=== PATIENT | male | born 1960 | race African-American/Black ===

== ENCOUNTER 2017-05-06 14:59 | Emergency (ER) | payer MEDICAID, OTHER ==
[~2017-05-06] VITALS: Ht 185.4 cm; Wt 92.0 kg
[~2017-05-06 14:59] MED LIST: HTN MEDICATION
[2017-05-06] MEDS ORDERED: KETOROLAC 60MG/2ML VIAL IM ONE (21:30)
[2017-05-06 22:08] VITALS: BP 150/76
== END 2017-05-06 23:25 | disposition home or self-care (01) ==
LOC: ER 14:59
DX: M54.5 Low back pain (principal); M25.562 Pain in left knee; M25.561 Pain in right knee; I10 Essential (primary) hypertension; M17.0 Bilateral primary osteoarthritis of knee; F10.10 Alcohol abuse, uncomplicated; F12.10 Cannabis abuse, uncomplicated; F17.210 Nicotine dependence, cigarettes, uncomplicated
CPT/HCPCS: 73562; 96372; 99284; J1885

== ENCOUNTER 2018-10-06 10:03 | Emergency (ER) | payer MEDICAID, OTHER ==
[~2018-10-06] VITALS: Ht 185.4 cm; Wt 86.0 kg
[2018-10-06] MEDS ORDERED: HYDROCODONE/ACETAMINOPHEN 5/325MG TABLET PO ONE (11:15)
[2018-10-06 11:50] VITALS: BP 219/101
== END 2018-10-06 12:35 | disposition home or self-care (01) ==
LOC: ER 10:19
DX: G89.29 Other chronic pain (principal); M54.5 Low back pain; Z76.0 Encounter for issue of repeat prescription; I10 Essential (primary) hypertension; M19.90 Unspecified osteoarthritis, unspecified site; F17.200 Nicotine dependence, unspecified, uncomplicated; F12.10 Cannabis abuse, uncomplicated
CPT/HCPCS: 99283

== ENCOUNTER 2018-10-28 14:53 | Emergency (ER) | payer MEDICAID ==
[~2018-10-28] VITALS: Ht 182.9 cm; Wt 85.6 kg
[2018-10-29 03:00] LABS: CHLORIDE 105 mEq/L (98-107)
[2018-10-29 03:05] LABS: BASOPHILS % 0.7 % (0.0-2.0); EOSINOPHILS % 2.3 % (0.0-5.0); HEMATOCRIT. 42.3 % (42.0-52.0); HEMOGLOBIN. 14.1 g/dL (14.0-18.0); LYMPHOCYTES % 30.1 % (20.0-50.0); MEAN CORPUSCULAR HEMOGLOBIN 32.6 pg (28.0-32.0); MEAN PLATELET VOLUME 9.7 fl (7.4-10.4); MONOCYTES % 10.2 % (2.0-8.0); NEUTROPHILS % 56.7 % (40.0-76.0); PLATELET 140 x1000/uL (130-400); PROTHROMBIN TIME 9.8 sec (9.1-11.1); RED BLOOD CELL COUNT 4.31 mill/uL (4.7-6.1); RED CELL DISTRIBUTION WIDTH 14.7 % (11.6-14.6)
[2018-10-29 04:09] LABS: *AMPHETAMINES SCREEN URINE NEGATIVE (NEGATIVE); *BARBITURATES SCREEN URINE NEGATIVE (NEGATIVE); *BENZODIAZEPINES SCREEN URINE NEGATIVE (NEGATIVE); *COCAINE SCREEN URINE NEGATIVE (NEGATIVE); CANNABINOID URINE SCREEN PRESUMTIVE POSITIVE (NEGATIVE); METHADONE URINE SCREEN NEGATIVE (NEGATIVE); OPIATES URINE SCREEN NEGATIVE (NEGATIVE); PHENCYCLIDINE URINE SCREEN NEGATIVE (NEGATIVE)
[2018-10-29 05:40] VITALS: BP 168/86
== END 2018-10-29 05:42 | disposition home or self-care (01) ==
LOC: ER 14:53
DX: R20.2 Paresthesia of skin (principal); F12.10 Cannabis abuse, uncomplicated; I10 Essential (primary) hypertension; J98.11 Atelectasis; M19.90 Unspecified osteoarthritis, unspecified site
CPT/HCPCS: 36415; 70450; 71045; 80053; 80305; 82962; 84484; 85025; 85610; 93005; 99284; Z7610

== ENCOUNTER 2020-10-02 13:36 | Emergency (ER) | payer MEDICAID ==
[~2020-10-02] VITALS: Ht 180.3 cm; Wt 84.0 kg
[2020-10-02] MEDS ORDERED: TETANUS, DIPHTHERIA, PERTUSSIS VAC/PF 0.5ML (>7YR OLD) IM ONE (14:15)
[2020-10-02] MEDS ORDERED: ACETAMINOPHEN 325MG TABLET PO ONE (15:30)
[2020-10-02 15:52] VITALS: BP 134/84
== END 2020-10-02 16:46 | disposition home or self-care (01) ==
LOC: ER 13:45
DX: S02.91XA Unspecified fracture of skull, initial encounter for closed fracture (principal); S01.01XA Laceration without foreign body of scalp, initial encounter; I10 Essential (primary) hypertension; F12.10 Cannabis abuse, uncomplicated; W22.8XXA Striking against or struck by other objects, initial encounter; Y93.89 Activity, other specified; Y92.89 Other specified places as the place of occurrence of the external cause; Y99.8 Other external cause status
CPT/HCPCS: 12002; 90471; 90715; 93005; 99284

== ENCOUNTER 2020-10-04 10:02 | Emergency (ER) | payer MEDICAID ==
[~2020-10-04] VITALS: Ht 185.4 cm; Wt 91.0 kg
[2020-10-04 10:04] VITALS: BP 192/95
== END 2020-10-04 11:39 | disposition home or self-care (01) ==
LOC: ER 10:26
DX: S01.01XD Laceration without foreign body of scalp, subsequent encounter (principal); F12.10 Cannabis abuse, uncomplicated; I10 Essential (primary) hypertension; Z48.00 Encounter for change or removal of nonsurgical wound dressing; X58.XXXD Exposure to other specified factors, subsequent encounter
CPT/HCPCS: 99281

== ENCOUNTER 2020-10-21 10:32 | Emergency (ER) | payer MEDICAID ==
[~2020-10-21] VITALS: Ht 177.8 cm; Wt 82.0 kg
[2020-10-21] MEDS: ACETAMINOPHEN 325MG TABLET PO ONE (11:10)
[2020-10-21] MEDS: AMLODIPINE 5MG TABLET PO ONE (11:26)
[2020-10-21 12:04] VITALS: BP 192/96
== END 2020-10-21 12:10 | disposition left against medical advice (07) ==
LOC: ER 10:42
DX: R07.81 Pleurodynia (principal); I10 Essential (primary) hypertension; F12.10 Cannabis abuse, uncomplicated
CPT/HCPCS: 71045; 99283

== ENCOUNTER 2020-10-23 09:51 | Emergency (ER) | payer MEDICAID ==
[~2020-10-23] VITALS: Ht 185.4 cm; Wt 88.0 kg
[2020-10-23 10:08] VITALS: BP 183/100
== END 2020-10-23 11:48 | disposition home or self-care (01) ==
LOC: ER 10:38
DX: R07.89 Other chest pain (principal); R05 Cough; I10 Essential (primary) hypertension; F12.10 Cannabis abuse, uncomplicated
CPT/HCPCS: 71046; 99283

== ENCOUNTER 2024-07-04 11:42 | Emergency (ER) | payer MEDICAID, MEDICARE ==
[~2024-07-04] VITALS: Ht 175.3 cm; Wt 69.0 kg
[2024-07-04 11:45] VITALS: O2SAT 100
[2024-07-04 13:00] VITALS: BP 143/86; PULSE 109; RESP 18; TEMP 98.1
[2024-07-04] MEDS: KETOROLAC 30MG/ML VIAL IM ONE (13:00)
[2024-07-04] MEDS: ACETAMINOPHEN 325MG TABLET PO ONE (13:00)
== END 2024-07-04 16:24 | disposition home or self-care (01) ==
LOC: ER 11:53
DX: S83.91XA Sprain of unspecified site of right knee, initial encounter (principal); R07.81 Pleurodynia; I10 Essential (primary) hypertension; W01.0XXA Fall on same level from slipping, tripping and stumbling without subsequent striking against object, initial encounter; Y93.89 Activity, other specified; Y92.89 Other specified places as the place of occurrence of the external cause; Y99.8 Other external cause status
CPT/HCPCS: 71101; 73564; 96372; 99284; J1885; Z7610; L1830; 29505